=== PATIENT | male | born 1950 | race Caucasian/White ===

== ENCOUNTER 2017-08-16 08:09 | Outpatient (CLI) | payer MEDICARE ==
--- NOTE | 2017-08-16 09:52 | CT ---
CT ABDOMEN AND PELVIS NONCONTRAST: HISTORY: Bilateral flank pain. FINDINGS: No comparison. Each renal collecting system, ureter, and urinary bladder are decompressed without ev idence of stone. Lack of contrast limits evaluation for other abnormalities. The liver is diffusely hypodense. Diver ticula arise from the colon without adjacent inflammation. There are degenerative changes of the lum bar spine. IMPRESSION: 1. No CT evidence of urinary tract obstruction or calcification. 2. Diverticulosis. No evidence of diverticulitis. 3. Hepatosteatosis. 4. Degenerative changes lumbar spine. POS: DISHA
== END 2017-08-16 08:10 | disposition home or self-care (01) ==
LOC: CT 08:09
PROVIDERS: ATTEND Family Medicine
DX: R10.9 Unspecified abdominal pain (principal); K57.30 Diverticulosis of large intestine without perforation or abscess without bleeding; K76.0 Fatty (change of) liver, not elsewhere classified; M47.896 Other spondylosis, lumbar region
CPT/HCPCS: 74176

== ENCOUNTER 2017-08-25 08:35 | Outpatient (CLI) | payer MEDICARE | END 2017-08-25 08:36 | disposition home or self-care (01) | LOC: BICMRI 08:35 | PROVIDERS: ATTEND Family Medicine | DX: M54.42 Lumbago with sciatica, left side (principal); M47.896 Other spondylosis, lumbar region; M71.38 Other bursal cyst, other site | CPT/HCPCS: 72148 ==

== ENCOUNTER 2017-09-15 10:30 | Outpatient (CLI) | payer MEDICARE | END 2017-09-15 10:31 | disposition home or self-care (01) | LOC: BICRAD 10:30 | PROVIDERS: ATTEND Specialist | DX: M43.16 Spondylolisthesis, lumbar region (principal); M46.86 Other specified inflammatory spondylopathies, lumbar region | CPT/HCPCS: 72110 ==

== ENCOUNTER 2018-01-18 10:15 | Inpatient (IN) | payer MEDICARE ==
[2018-01-25] MEDS ORDERED: PHENYLEPHRINE-NS 100 MCG/ML 10 ML SYRINGE ONE (11:05)
[2018-01-25] MEDS ORDERED: ePHEDrine/0.9% NaCl/PF SYRINGE 50 mg/10 ml ONE (11:05)
[2018-01-25] MEDS ORDERED: PROPOFOL 200 MG/20 ML VIAL ONE (11:05)
[2018-01-25] MEDS ORDERED: Metoclopramide HCl 10 MG/2 ML VIAL ONE (11:05)
[2018-01-25] MEDS ORDERED: Glycopyrrolate 0.2 MG/ML 5 ML SYRINGE ONE (11:05)
[2018-01-25] MEDS ORDERED: Lidocaine 1% PF 5 ML VIAL ONE (11:05)
[2018-01-25] MEDS ORDERED: Ondansetron HCl/PF 4 MG/2 ML Vial ONE (11:05)
[2018-01-25] MEDS ORDERED: CEFAZOLIN/Water 2 GM/20 ML SYRINGE ONE (11:29)
[2018-01-25] MEDS ORDERED: Bacitracin Zinc Ointment 30 gm TUBE ONE (12:20)
[2018-01-25] MEDS ORDERED: Sodium Chloride 0.9% 10 ML ONE (12:20)
[2018-01-25] MEDS ORDERED: Thrombin 5000 UNITS/5 ML VIAL ONE (12:20)
[2018-01-25] MEDS ORDERED: Fentanyl 100 MCG/2 ML VIAL ONE ×2 (12:33→15:14)
[2018-01-25] MEDS ORDERED: HYDROmorphone 2 MG/ML VIAL SLOW IVP PRN (15:45)
[2018-01-25] MEDS ORDERED: Promethazine HCl 25 MG/ML VIAL IM PRN ×2 (15:45→15:57)
[2018-01-25] MEDS ORDERED: Morphine Sulfate 2 MG/ML SYRINGE SLOW IVP PRN (15:45)
[2018-01-25] MEDS ORDERED: Promethazine HCl 25 MG/ML VIAL SLOW IVP PRN (15:45)
[2018-01-25] MEDS ORDERED: Ondansetron HCl/PF 4 MG/2 ML Vial IVP PRN (15:45)
[2018-01-25] MEDS ORDERED: Meperidine HCl/PF 25 MG/ML VIAL SLOW IVP PRN (15:45)
[2018-01-25] MEDS ORDERED: Bisacodyl 10 MG SUPP PR PRN (15:57)
[2018-01-25] MEDS ORDERED: Milk Of Magnesia 30 ML UDCUP PO PRN (15:57)
[2018-01-25] MEDS ORDERED: traMADol HCl 50 MG TAB PO PRN (15:57)
[2018-01-25] MEDS ORDERED: Mag-Al 1200 mg/1200 mg/30 ML UDCUP PO PRN (15:57)
[2018-01-25] MEDS ORDERED: Acetaminophen/Codeine 30-300mg Tablet PO PRN (15:57)
[2018-01-25] MEDS ORDERED: Acetaminophen 325 MG TAB PO PRN (15:57)
[2018-01-25] MEDS ORDERED: Fleet Enema 133 ML BOT PR PRN (15:57)
[2018-01-25] MEDS ORDERED: TEMAZEPAM 22.5 MG PO PRN (15:59)
[2018-01-25] MEDS: Sodium Chloride 0.9% 1,000 ML IV SCH (17:24)
[2018-01-25 17:30] VITALS: BMI 34.7
[2018-01-25] MEDS: HYDROcodone/Acetaminophen 7.5/325 mg Tablet PO PRN ×2 (19:19→23:17)
[2018-01-25] MEDS: CEFAZOLIN/Water 2 GM/20 ML SYRINGE SLOW IVP SCH (20:52)
[2018-01-25] MEDS: Gabapentin 300 MG CAP PO SCH (20:53)
[2018-01-25] MEDS: metFORMIN XR 500 MG TAB PO SCH (20:53)
[2018-01-26] MEDS: HYDROcodone/Acetaminophen 7.5/325 mg Tablet PO PRN ×2 (03:10→09:44)
[2018-01-26] MEDS: Sodium Chloride 0.9% 1,000 ML IV SCH (03:11)
[2018-01-26] MEDS: tiZANidine HCl 4 MG TAB PO PRN ×2 (03:15→09:44)
[2018-01-26] MEDS: CEFAZOLIN/Water 2 GM/20 ML SYRINGE SLOW IVP SCH (03:16)
[2018-01-26 08:11] VITALS: BP 156/68; TEMP 98
[2018-01-26] MEDS: Gabapentin 300 MG CAP PO SCH (08:31)
[2018-01-26] MEDS: metFORMIN XR 500 MG TAB PO SCH (08:32)
[2018-01-26] MEDS ORDERED: Atorvastatin Calcium 10 MG TAB PO SCH (09:00)
[2018-01-26] MEDS ORDERED: Tamsulosin HCl 0.4 MG CAP PO SCH (09:00)
[2018-01-26] MEDS ORDERED: Fluticasone Propionate Nasal Spray 16 gm Bottle NASAL SCH (09:00)
[2018-01-26] MEDS ORDERED: Doxazosin Mesylate 4 MG TAB PO SCH (09:00)
--- NOTE | 2018-01-27 01:14 | DIS ---
Mr. Napoles was admitted to [facility] by Dr. Cosmo Mitchell on 01/25/2018 with discharge the on 01/26/2018 ADMISSION DIAGNOSIS: Status post lumbar laminectomy. DISCHARGE DIAGNOSIS: Status post lumbar laminectomy. HOSPITAL COURSE: Mr. Napoles's hospital course was uncomplicated. There were no consultations ordered. He tolerated his postoperative discomforts well and was discharged home with outpatient followup, a nticipated at 2 weeks in good condition.
--- NOTE | 2018-01-29 13:12 | OP ---
DATE OF SURGERY: 01/26/2018 SURGEON: Cosmo Mitchell M.D. WELDING MACHINE OPERATOR HELPER GAS: Monico Myers PA-C. PREPROCEDURE DIAGNOSES: L3-L4 synovial cyst low back and leg pain. POSTPROCEDURE DIAGNOSES: L3-L4 synovial cyst low back and leg pain. PROCEDURE: L3-L4 laminectomy for synovial cyst resection. DESCRIPTION OF PROCEDURE: After informed consent was obtained from the patient, the patient was brou ght to OR. Proper patient pause and identification was carried out. He was placed in excellent gene ral endotracheal anesthesia and positioned prone on the OR table. All appropriate points were padded . We then identified a linear cristine to allow for approach to the L3- L4 segment. This region was jean-paul rilely cleansed, prepared, and draped. Proper patient pause and identification was carried out. The wound was then opened with a combination of sharp, monopolar and blunt dissection. The L3-L4 segmen t was exposed. Localization film confirmed our area of interest. We then performed an L3-L4 laminec kadeem, partial facetectomy, foraminotomies and identified a large left L3-L4 synovial cyst. I felt ou t with a pedicle probe into the right L3 foramen and it was free and it did not appear as if the extr aforaminal cyst was compressive. As such, I turned my attention to a large left L3-L4 synovial cyst and this was resected. We had excellent decompression of the common dural tube, bilateral L3 and marko ateral L4 nerve roots. Copious irrigation occurred throughout and we maximized hemostasis. The woun d was then closed in anatomic layers following the sprinkling of vancomycin powder. The patient then emerged from anesthesia.
== END 2018-01-26 09:55 | disposition home or self-care (01) | DRG 520 ==
LOC: SURG A 01-25 08:38 → EDSTATUS 01-25 10:15 → SURG A 01-25 16:59
PROVIDERS: ADMIT Surgery; ATTEND Surgery
PROC: 01NB0ZZ Release Lumbar Nerve, Open Approach (ICD-10-PCS; principal; 2018-01-25)
PROC: 0SB00ZZ Excision of Lumbar Vertebral Joint, Open Approach (ICD-10-PCS; 2018-01-25)
DX: M54.16 Radiculopathy, lumbar region (principal); M70.30 Other bursitis of elbow, unspecified elbow; M48.061 Spinal stenosis, lumbar region without neurogenic claudication; M71.38 Other bursal cyst, other site
CPT/HCPCS: 76001; A4216; J0131; J2001; J2405; J2704; J2765; J3010; J3370; J3490

== ENCOUNTER 2021-01-29 07:37 | Outpatient (CLI) | payer MEDICARE | END 2021-01-29 07:38 | disposition home or self-care (01) | LOC: TBSIIMAG 07:37 | PROVIDERS: ATTEND Family Medicine | DX: M54.16 Radiculopathy, lumbar region (principal); M48.061 Spinal stenosis, lumbar region without neurogenic claudication; M89.38 Hypertrophy of bone, other site; Z98.890 Other specified postprocedural states | CPT/HCPCS: 72148 ==

== ENCOUNTER 2021-03-01 17:30 | Outpatient (CLI) | payer MEDICARE | END 2021-03-01 17:31 | disposition home or self-care (01) | LOC: SLEEPLAB 17:30 | PROVIDERS: ATTEND Family Medicine | DX: G47.33 Obstructive sleep apnea (adult) (pediatric) (principal); G47.00 Insomnia, unspecified; R53.83 Other fatigue; R06.83 Snoring; I10 Essential (primary) hypertension; E66.9 Obesity, unspecified; Z68.33 Body mass index [BMI] 33.0-33.9, adult | CPT/HCPCS: 95806 ==

== ENCOUNTER 2022-12-26 12:32 | Outpatient (CLI) | payer MEDICARE | END 2022-12-26 12:33 | disposition home or self-care (01) | LOC: BICMRI 12:32 | PROVIDERS: ATTEND Family Medicine | DX: M47.26 Other spondylosis with radiculopathy, lumbar region (principal); M51.16 Intervertebral disc disorders with radiculopathy, lumbar region; M89.38 Hypertrophy of bone, other site; Z98.890 Other specified postprocedural states | CPT/HCPCS: 72148 ==

== ENCOUNTER 2023-06-06 08:31 | Outpatient (CLI) | payer MEDICARE | END 2023-06-06 08:32 | disposition home or self-care (01) | LOC: BICMRI 08:31 | PROVIDERS: ATTEND Surgery | DX: M54.2 Cervicalgia (principal); R29.898 Other symptoms and signs involving the musculoskeletal system; M47.812 Spondylosis without myelopathy or radiculopathy, cervical region; M50.31 Other cervical disc degeneration, high cervical region; M50.321 Other cervical disc degeneration at C4-C5 level; M50.322 Other cervical disc degeneration at C5-C6 level; M50.33 Other cervical disc degeneration, cervicothoracic region; M48.02 Spinal stenosis, cervical region | CPT/HCPCS: 72050; 72141 ==

== ENCOUNTER 2023-09-19 14:14 | Outpatient (CLI) | payer MEDICARE | END 2023-09-19 14:15 | disposition home or self-care (01) | LOC: ULT 14:14 | PROVIDERS: ATTEND Family Medicine | DX: R60.0 Localized edema (principal); I08.1 Rheumatic disorders of both mitral and tricuspid valves | CPT/HCPCS: 93306 ==

== ENCOUNTER 2024-02-26 07:40 | Outpatient (CLI) | payer MEDICARE | END 2024-02-26 07:41 | disposition home or self-care (01) | LOC: ULT 07:40 | PROVIDERS: ATTEND Family Medicine | DX: R74.8 Abnormal levels of other serum enzymes (principal); K76.0 Fatty (change of) liver, not elsewhere classified | CPT/HCPCS: 76705 ==

== ENCOUNTER 2024-03-08 09:33 | Outpatient (CLI) | payer MEDICARE ==
[2024-03-08] MEDS ORDERED: Iopamidol 370 76% 100 ML VIAL ONE (11:29)
== END 2024-03-08 09:34 | disposition home or self-care (01) ==
LOC: CT 09:33
PROVIDERS: ATTEND Family Medicine
DX: R10.84 Generalized abdominal pain (principal); K57.30 Diverticulosis of large intestine without perforation or abscess without bleeding
CPT/HCPCS: 74177; Q9967